=== PATIENT | male | born 1955 | race Caucasian/White ===

== ENCOUNTER → 2017-05-09 | Outpatient (CLI) | payer OTHER ==
[~2017-05-09] MED LIST: OMEGA PO; PLEXUS EASE PO; PLEXUS NERVE PO; [UNRECOGNIZED DRUG - OTHER] PO; [UNRECOGNIZED DRUG - OTHER] PO
== END | disposition home or self-care (01) ==
LOC: OIH 13:29
PROVIDERS: ATTEND Internal Medicine
DX: M16.12 Unilateral primary osteoarthritis, left hip (principal); M47.896 Other spondylosis, lumbar region; I70.8 Atherosclerosis of other arteries
CPT/HCPCS: 72100; 73502

== ENCOUNTER 2022-07-11 19:57 | Emergency (ER) | payer MEDICARE ==
[~2022-07-11] VITALS: Ht 167.6 cm; Wt 92.1 kg
[2022-07-11] MEDS ORDERED: SOLU-MEDROL 125MG VIAL IM ONE (21:00)
[2022-07-11] MEDS ORDERED: MORPHINE 4 MG SYG IM ONE (21:00)
[2022-07-11] MEDS ORDERED: ONDANSETRON ODT 4MG TAB SL ONE (21:00)
[2022-07-11] MEDS ORDERED: OXYC-38 PO (21:44)
[2022-07-11] MEDS ORDERED: CYCL10TA16 PO (21:44)
[2022-07-11] MEDS ORDERED: PRED50TA2 PO (21:44)
[2022-07-11 22:18] LABS: BASOPHILS % (AUTO) 0.7 % (0.0-5.0); EOSINOPHILS % (AUTO) 4.4 % (0.0-8.0); HEMATOCRIT 43.7 % (42-54); LYMPHOCYTES % (AUTO) 31.4 % (21.0-51.0); MEAN CORPUSCULAR HEMOGLOBIN 30.6 pg (27.0-33.0); MEAN CORPUSCULAR HGB CONC 33.6 g/dL (32.0-36.0); MONOCYTES % (AUTO) 11.9 % (3.0-13.0); NEUTROPHILS % (AUTO) 50.3 % (40.0-77.0); PLATELET COUNT (AUTO) 390 K/uL (130-400); RED CELL DISTRIBUTION WIDTH 14.4 % (11.0-15.5); WHITE BLOOD COUNT (AUTO) 16.5 K/uL (4.8-10.8)
[2022-07-11 22:27] LABS: CREATININE 0.9 mg/dL (0.5-1.5); POTASSIUM 4.4 mmol/L (3.5-5.1)
[2022-07-11] MEDS ORDERED: HYDRALAZINE 20MG/ML VIAL IV ONE (22:30)
[2022-07-11 22:36] LABS: ALBUMIN 3.6 g/dL (3.5-5.0); TOTAL PROTEIN, SERUM 7.2 g/dL (6.0-8.3)
[2022-07-11 23:09] VITALS: BP 143/80
[2022-07-11] MEDS ORDERED: OXYCODONE/ACETAMIN 5/325MG TAB PO ONE (23:30)
== END 2022-07-11 23:29 | disposition home or self-care (01) ==
LOC: EDH 19:57
DX: M54.12 Radiculopathy, cervical region (principal); Z79.52 Long term (current) use of systemic steroids; Z90.49 Acquired absence of other specified parts of digestive tract
CPT/HCPCS: 99285; 96374; 72125; 84484; 80053; 85025; 36415; 96372 ×2; 93005; J2930; J0360; J2270